=== PATIENT | male | born 1990 | race Hispanic/Latino ===

== ENCOUNTER 2017-10-01 10:55 | Emergency (ER) | payer OTHER ==
[2017-10-01 11:05] VITALS: TEMP 98.3
--- NOTE | 2017-10-01 11:37 | ED PDOC ---
HPI: Male Pain Time Seen by Provider: 10/01/17 11:35 Chief Complaint (Nursing): Male Genitourinary Chief Complaint (Provider): right testicular pain History Per: Patient (26 y/o male here with right testicular pain noted approx 26 hours noted dull and waxing and waning in intensity. Denies any fevers/ chills. Denies any dysuria. Has had recent STD testing negative. Denies any back/abdomninal pain/hematuria/dysuria.) Past Medical History Reviewed: Historical Data, Nursing Documentation, Vital Signs Vital Signs: Last Vital Signs Temp 98.3 F 10/01/17 11:04 Pulse 55 L 10/01/17 11:04 Resp 19 10/01/17 11:04 BP 127/78 10/01/17 11:04 Pulse Ox 97 10/01/17 11:04 - Family History Family History: States: No Known Family Hx - Home Medications Home Medications: Ambulatory Orders Medication Instructions Recorded Ibuprofen [Motrin] 600 mg PO Q8 PRN #21 tab 10/01/17 - Allergies Allergies/Adverse Reactions: Allergies Allergy/AdvReac Type Severity Reaction Status Date / Time No Known Allergies Allergy Verified 10/01/17 11:15 Review of Systems ROS Statement: Except As Marked, All Systems Reviewed And Found Negative Physical Exam - Reviewed Nursing Documentation Reviewed: Yes Vital Signs Reviewed: Yes - Physical Exam Appears: Positive for: Well, Non-toxic, No Acute Distress Head Exam: Positive for: ATRAUMATIC, NORMAL INSPECTION, NORMOCEPHALIC Skin: Positive for: Normal Color, Warm, DRY Eye Exam: Positive for: EOMI, Normal appearance, PERRL ENT: Positive for: Normal ENT Inspection Neck: Positive for: Normal, Painless ROM Cardiovascular/Chest: Positive for: Regular Rate, Rhythm Respiratory: Positive for: CNT, Normal Breath Sounds Gastrointestinal/Abdominal: Positive for: Normal Exam, Soft Male Genital Exam: Positive for: other (nontender testicular exam. No signs of erythema/swelling noted.) Back: Positive for: Normal Inspection Extremity: Positive for: Normal ROM Neurologic/Psych: Positive for: Alert, Oriented - ECG O2 Sat by Pulse Oximetry: 97 - Progress ED Course And Treament: DUPLEX NEG DVT. Disposition - Clinical Impression Clinical Impression: Testicular pain, right - Patient ED Disposition Is Patient to be Admitted: No - Disposition Referrals: Adrian Putnam MD [Staff Provider] - Disposition: Routine/Home Disposition Time: 14:07 Condition: FAIR Prescriptions: Ibuprofen [Motrin] 600 mg PO Q8 PRN #21 tab PRN Reason: Pain, Moderate (4-7) Instructions: Testicular Injury Forms: [facility] ED School/Work Excuse
[2017-10-01 12:22] LABS: URINE BILIRUBIN NEGATIVE (NEGATIVE); URINE BLOOD NEGATIVE (NEGATIVE); URINE CLARITY CLEAR (Clear); URINE COLOR YELLOW (YELLOW); URINE GLUCOSE (UA) NEG (Normal); URINE LEUKOCYTE ESTERASE NEG Leu/uL (Negative); URINE PROTEIN NEGATIVE (NEGATIVE); URINE UROBILINOGEN 0.2-1.0 mg/dL (0.2-1.0)
--- NOTE | 2017-10-01 13:38 | US ---
Date of service: 10/01/2017 HISTORY: Right testicular tenderness 24 hour duration. Swelling which appears with lessened since the symptoms started. . TECHNIQUE: Realtime sonography through the scrotum with color and doppler flow. COMPARISON: None Available. FINDINGS: RIGHT TESTICLE: Measures 1.3 x 2 x 5.5 cm. Normal echotexture and flow. Incidental finding(s): Testicular microlithiasis RIGHT EPIDIDYMIS: Epididymal head measures 1.1 x 0.8 cm. Grossly unremarkable appearance with normal flow. LEFT TESTICLE: Measures 1.8 x 2.5 x 5.8 cm. Normal echotexture and flow. Incidental finding(s): Testicular microlithiasis LEFT EPIDIDYMIS: Epididymal head measures 0.7 x 0.8 cm. Grossly unremarkable appearance with normal flow. HYDROCELE: None. VARICOCELE: None. OTHER FINDINGS: None. IMPRESSION: No significant or acute findings to account for/ related to the clinical presentation. Additional benign and/or incidental findings described above.
[2017-10-01 14:17] VITALS: BP 118/72; PULSE 72; RESP 18
[2017-10-02 15:37] VITALS: O2SAT 97
== END 2017-10-01 14:16 | disposition home or self-care (01) ==
LOC: H.ER 10:55
DX: N50.811 Right testicular pain (principal)